=== PATIENT | male | born 1940 | race Caucasian/White ===

== ENCOUNTER 2017-05-07 10:26 | Outpatient (CLI) | payer MEDICARE, BC ==
[2017-05-07 11:52] LABS: Hematocrit 44.8 % (42.0-52.0); Mean Platelet Volume 7.1 fL (7.4-10.4); Red Blood Cell (RBC) Count 4.66 mill/uL (4.70-6.10); White Blood Cell (WBC) Count 5.5 thou/uL (4.8-10.8)
[2017-05-07 11:59] LABS: Prothrombin Time 13.9 SEC (12.0-14.7)
[2017-05-07 12:00] LABS: PTT 30.4 SEC (22.9-36.1)
[2017-05-07 12:13] LABS: Anion Gap 11 mmol/L (10-20); BUN (Urea Nitrogen) 16 mg/dL (8.4-25.7); Calc. Creatinine Clearance 0 mL/min (70-130); Calcium 9.3 mg/dL (7.8-10.44); Carbon Dioxide 27 mmol/L (23-31); Chloride 103 mmol/L (98-107); Estimated GFR-MDRD 90
== END 2017-05-07 10:27 | disposition home or self-care (01) ==
LOC: LABBT 10:26
PROVIDERS: ATTEND Internal Medicine Cardiovascular Disease
DX: Z01.818 Encounter for other preprocedural examination (principal); I48.92 Unspecified atrial flutter

== ENCOUNTER 2018-05-28 11:48 | Observation (INO) | payer MEDICARE, BC ==
[2018-05-28 12:37] LABS: #Basophils 0.1 thou/uL (0.0-0.2); #Eosinphils 0.1 thou/uL (0.0-0.7); #Lymphocytes 1.3 thou/uL (1.20-3.40); #Monocytes 0.7 thou/uL (0.11-0.59); #Neutrophils 4.4 thou/uL (1.40-6.50); %Eosinophils 1.1 % (0.0-10.0); %Lymphocytes 20.1 % (21.0-51.0); %Neutrophils 66.7 % (42.0-75.0); Hemoglobin 13.9 g/dL (14.0-18.0); Mean Corpuscular HGB CONC 34.4 g/dL (32.0-36.0); Mean Corpuscular Hemoglobin 30.6 pg (27.0-31.0); Platelet Count 187 thou/uL (130-400); RBC Distribution Width 11.3 % (11.5-14.5); Red Blood Cell (RBC) Count 4.56 mill/uL (4.70-6.10); White Blood Cell (WBC) Count 6.5 thou/uL (4.8-10.8)
[2018-05-28 12:52] LABS: ALT (SGPT) 32 U/L (8-55); AST (SGOT) 26 U/L (5-34); Albumin 3.8 g/dL (3.4-4.8); Alkaline Phosphatase 85 U/L (40-150); Anion Gap 12 mmol/L (10-20); BUN (Urea Nitrogen) 20 mg/dL (8.4-25.7); Bilirubin, Total 0.6 mg/dL (0.2-1.2); Calc. Creatinine Clearance 0 mL/min (70-130); Calcium 9.3 mg/dL (7.8-10.44); Carbon Dioxide 23 mmol/L (23-31); Chloride 110 mmol/L (98-107); Estimated GFR-MDRD 65; Globulin 2.4 g/dL (2.4-3.5); Glucose 96 mg/dL (83-110); Potassium 4.6 mmol/L (3.5-5.1); Protein, Total 6.2 g/dL (5.8-8.1); Sodium 140 mmol/L (136-145)
[2018-05-28 12:53] LABS: CKMB 1.2 ng/mL (0-6.6); Troponin I Less than 0.010 ng/mL (< 0.028)
[2018-05-28 14:24] LABS: Bilirubin Negative (Negative); Blood, Urine Negative (Negative); Clarity Clear (Clear); Glucose, Urine (Dipstick) Negative (Negative); Leukocyte Negative (Negative); Nitrite Negative (Negative); Protein, Urine (Dipstick) Negative (Neg-Trace); Urobilinogen 0.2 mg/dL (0.2-1.0)
[2018-05-28 15:17] VITALS: BMI 20.3
[2018-05-28] MEDS ORDERED: Nitroglycerin 0.4 MG TAB (25 Tab Bottle) SL PRN (15:24)
[2018-05-28] MEDS ORDERED: HYDROcodone/Acetaminophen 5/325 mg Tablet PO PRN (15:24)
[2018-05-28] MEDS ORDERED: hydrALAZINE 20 MG/ML VIAL SLOW IVP PRN (15:24)
[2018-05-28] MEDS ORDERED: Acetaminophen 325 MG TAB PO PRN (15:24)
[2018-05-28] MEDS ORDERED: cloNIDine 0.1 MG TAB PO PRN (15:24)
[2018-05-28] MEDS ORDERED: Bisacodyl 5 MG TAB PO PRN (15:24)
[2018-05-28] MEDS ORDERED: Ondansetron PF 4 MG/2 ML Vial IVP PRN (15:24)
[2018-05-28] MEDS ORDERED: Diabetic Tussin 200 MG/10 ML UDCUP PO PRN (15:24)
[2018-05-28] MEDS ORDERED: Senokot S 8.6-50 MG TAB PO PRN ×2 (15:24)
[2018-05-28] MEDS ORDERED: Calcium Carbonate 500 MG ChewTAB PO PRN (15:24)
[2018-05-28] MEDS ORDERED: Benzonatate 100 MG CAP PO PRN (15:24)
--- NOTE | 2018-05-28 15:56 | RAD ---
CHEST ONE VIEW: 05/28/18 HISTORY: Dyspnea. COMPARISON: Radiograph 07/20/16. FINDINGS: The lungs are clear. No pneumothorax or effusion. The cardiac silhouette and mediastinal contours ar e within normal limits. IMPRESSION: No acute intrathoracic abnormality. POS: [facility]
[2018-05-28 16:08] LABS: Troponin I Less than 0.010 ng/mL (< 0.028)
--- NOTE | 2018-05-28 16:45 | HP ---
DATE OF ADMISSION: 05/28/2018 PRIMARY CARE PHYSICIAN: Hardy Sierra D.O. CHIEF COMPLAINT: Weakness, hypotension, dizziness and palpitations. HISTORY OF PRESENT ILLNESS: Mr. Zepeda is a 77-year-old male with past medical history of atrial fi brillation, status post ablation and eventually pacemaker placement who presented to the [facility] emergency room with the above-mentioned complaints. History is mainly obtained by the patient hi mself and electronic medical record have been reviewed. Case has been discussed with the ER garrett wolff. Mr. Zepeda reports that he has been in his usual health up until 2 weeks ago. For the last 2 weeks, he has been having extreme weakness where he is not even able to get up from the chair. It comes an d goes. He has some dizziness on and off with this, but mainly the weakness has brought him down. H curry has no sick contacts. He has no fever, chills, rhinorrhea or sore throat. He denies any dehydrati on. His appetite is good and oral intake is good. He denies any diarrhea or vomiting. No blood in the stools or urine. He also reports that his blood pressure has been running low for the last week or so. Sometimes, it is 90s systolic and this morning it was 80s/50s when he checked at home. He al so noticed that he is having some faster heart rate as fast as 113 earlier this morning. He is havin g some palpitations on and off as well. Upon presentation to the emergency room at the [facility]: His blood pressure was 94/67. He re ceived IV fluids in the emergency room and underwent a general examination including a 12-lead EKG, w hich showed paced rhythm at 71 beats per minute and a chest x-ray, which was unremarkable. He receiv ed 1 liter of fluids total and orthostatics were checked and there was no significant difference with the position change. His lab examination was rather unimpressive. Cardiac enzymes negative. He is now being admitted to the hospital for further evaluation. PAST MEDICAL HISTORY: 1. History of atrial fibrillation, status post ablation. 2. History of benign prostatic hypertrophy status post history of bladder cancer, status post TURP. PAST SURGICAL HISTORY: 1. TURP. 2. Pacemaker placement. 3. Hernia repair. 4. Cardiac ablation. SOCIAL HISTORY: He is and lives with his . No history of drug, tobacco or alcohol abuse . FAMILY HISTORY: Significant for dad who of heart failure and brother who from unknown caus es. CURRENT MEDICATIONS: Eliquis 5 mg p.o. b.i.d. and latanoprost eyedrops. CODE STATUS: Full code, discussed with the patient. REVIEW OF SYSTEMS: A 12-point review of systems is done. It is negative except for those mentioned in the history and physical. LABORATORY DATA: CBC shows hemoglobin 13.9, platelet count of 187,000, WBC 6.5. Serum chemistries u nremarkable. Troponin less than 0.010 x2. Urinalysis unremarkable. Chest x-ray by my review shows no pleural effusion, edema or infiltrate. A 12-lead EKG by my review shows no acute ST or T-wave eduardo nges. Paced rhythm is seen at 71 beats per minute. PHYSICAL EXAMINATION: VITAL SIGNS: Most recent vital signs, temperature 97.8, pulse of 79, respirations 18, saturating 94% on room air, blood pressure 110/65. GENERAL: No acute distress. He does appear somewhat pale, but otherwise awake, alert, oriented x3. HEENT: Mucous membrane is moist and pink. No oropharyngeal exudate or erythema. Head is normocepha lic, atraumatic. Pupils equal and reactive to light and accommodation. Extraocular movement intact. NECK: Supple without any lymphadenopathy, JVD or bruit. CHEST: Clear to auscultation without any wheezing, rales or rhonchi. CARDIOVASCULAR: Rate and rhythm is regular without any murmur, rubs or gallops. ABDOMEN: Soft, nontender, nondistended with positive bowel sounds. EXTREMITIES: Free of any cyanosis, clubbing or edema. NEUROLOGIC: Nonfocal. SKIN: Free of any rashes or bruises. Feels warm and dry to touch. PSYCHIATRIC: Normal affect. IMPRESSION AND PLAN: 1. Hypotension. The patient's pacemaker was interrogated and he has been having on and off episodes of atrial fibrillation with heart rate as fast as 180s. At this time, we will continue his Eliquis and get an echocardiogram and request consultation with Cardiology and possibly Electrophysiology for further recommendations. He will be admitted to telemetry unit for cardiac monitoring as well. No other reason is apparent for his low blood pressure as such infection or dehydration. He does not ta ke any blood pressure lowering medication either. 2. History of atrial fibrillation. Continue Eliquis for now. He is having recurrent episodic atria l fibrillation and is symptomatic because of that. 3. History of bladder cancer, status post TURP. 4. Code status: Full code, discussed with the patient. 5. Deep venous thrombosis and gastrointestinal prophylaxis with sequential compression devices and c ontinue Eliquis. DISPOSITION: Mr. Zepeda is currently being admitted to the hospital for hypotension and paroxysmal atrial fibrillation likely as a cause. Further management will depend upon his clinical course and r ecommendations from Cardiology.
[2018-05-28 19:49] LABS: Troponin I 0.011 ng/mL (< 0.028)
--- NOTE | 2018-05-28 20:54 | CON ---
DATE OF CONSULTATION: 05/28/2018 INDICATION FOR CONSULTATION: A 77-year-old patient with atrial fibrillation and flutter with rapid v entricular response with a history of weakness, shortness of breath, and hypotension. HISTORY OF PRESENT ILLNESS: This is a very pleasant 77-year-old gentleman I have been seeing for the last couple of years, has had a pacemaker insertion due to sick sinus syndrome with tachybrady. He also has a history of atrial flutter ablation, has a history of intermittent atrial fibrillation, had been on flecainide in the past and has been followed by the financial administrator. His flecainide and metoprolol were recently stopped by the financial administrator. At this time, the patient complains of increased weakness and shortness of breath for the last couple of weeks. Interrogation of the pacem jenn shows that he has been having multiple episodes of atrial fibrillation with rapid ventricular re sponse and has occasionally appears to be some time also may be atrial flutter, but appears to be juan nly atrial fibrillation. He has been having some episodes where he has been pace terminated by the stephanie marcano when he starts with the tachycardia, but only about 1/3 of the time and the remaining two-third s of the time, he has had intermittent atrial fibrillation with rapid ventricular response. At this time, he has atrial pacing with ventricular sensing, but it also appears to have some episodes of sup raventricular tachycardia on evaluation of the pacemaker. At this time, he is comfortable, but has b een complaining of increasing fatigue and I suspect this is due to the multiple episodes of atrial fi brillation with rapid ventricular response. He denies any chest pain or other significant problems. He has been trying to lose some weight after he originally had his arrhythmia problems in 07/2016. PAST MEDICAL HISTORY: Significant for pacemaker insertion in 07/2015 for tachybrady syndrome. He hurst s had an atrial flutter ablation in 05/2017. He has a history of benign prostatic hypertrophy. He h as had a history of bladder cancer, which has been resected. SOCIAL HISTORY: He is . He has no alcohol or tobacco abuse. FAMILY HISTORY: Positive for coronary artery disease. His father had a myocardial infarction and hurst d bypass surgery. MEDICATIONS PRIOR TO ADMISSION: Included Eliquis 5 mg b.i.d. and aspirin, it is reported as being 32 5, but I believe he was only taking 81 mg of aspirin. He was taking ophthalmic drops. He had previo usly been on flecainide 50 mg b.i.d. as well as metoprolol 25 mg once a day. ALLERGIES: None. REVIEW OF SYSTEMS: A 12-point review of systems is unremarkable, except what was noted in the histor y of present illness. Mainly, he complains of fatigue and weakness. PHYSICAL EXAMINATION: GENERAL: Reveals a well-developed, well-nourished gentleman, somewhat on the thin side. VITAL SIGNS: Blood pressure 110/65, heart rate is 80 at this time and is regular, temperature afebri le, respiratory rate 18. HEENT: Shows the head to be normocephalic and atraumatic. I did not hear any bruits. He has no JVD noted. CHEST: Clear to auscultation without rales, rhonchi, or wheezing. CARDIOVASCULAR: Exam at this time reveals a regular rate and rhythm. He has a well-healed surgical incision over the left infraclavicular area after pacemaker insertion. The site is well healed. The re were no other significant abnormalities. Femoral pulses are present. ABDOMEN: Soft, flat, and nontender. Positive bowel sounds are present. There is no organomegaly or masses noted. EXTREMITIES: Showed no clubbing, cyanosis, or edema. Pedal pulses are also present. NEUROLOGIC: The patient appears to be fully intact for his age. He has normal strength and normal t one. SKIN: Warm and dry. IMAGING: EKG at this time shows atrial pacing and ventricular sensing. Interrogation of the pacemak er indicates multiple episodes of atrial fibrillation with rapid ventricular response and today, he h as been having significant burden of atrial fibrillation with a rapid ventricular response. IMPRESSION: 1. Atrial fibrillation with rapid ventricular response. We will need to have further evaluation by financial administrator. I will start him back on the flecainide 50 mg b.i.d. and also low dose of metop rolol to see whether or not we can suppress some of the atrial fibrillation. He may need to undergo an ablation of the atrial fibrillation. I will leave this up to discretion of the electrophysiologis ts when they visit with the patient on Wednesday. 2. History of bladder cell cancer. This appears to be stable at this time and has not had any recur rence. Otherwise, the patient is stable from a cardiac standpoint. Hopefully, his symptoms will imp rove once we were able to control the atrial fibrillation.
[2018-05-28] MEDS ORDERED: Latanoprost 0.005% Ophth Soln 2.5 ml Bottle EA EYE SCH (21:00)
[2018-05-28] MEDS: Apixaban 5 MG TAB PO SCH (21:07)
[2018-05-28] MEDS: Metoprolol Tartrate 25 MG TAB PO SCH (21:08)
[2018-05-28] MEDS: Flecainide 50 MG TAB PO SCH (21:08)
[2018-05-29 08:03] LABS: Anion Gap 10 mmol/L (10-20); BUN (Urea Nitrogen) 16 mg/dL (8.4-25.7); Calc. Creatinine Clearance 69 mL/min (70-130); Calcium 8.7 mg/dL (7.8-10.44); Carbon Dioxide 25 mmol/L (23-31); Chloride 107 mmol/L (98-107); Estimated GFR-MDRD 88; Glucose 85 mg/dL (83-110); Potassium 4.2 mmol/L (3.5-5.1); Sodium 138 mmol/L (136-145)
[2018-05-29 08:17] LABS: #Eosinphils 0.1 thou/uL (0.0-0.7); #Lymphocytes 1.5 thou/uL (1.20-3.40); #Monocytes 0.5 thou/uL (0.11-0.59); #Neutrophils 2.9 thou/uL (1.40-6.50); %Basophils 0.6 % (0.0-1.0); %Lymphocytes 30.2 % (21.0-51.0); %Monocytes 9.5 % (0.0-10.0); %Neutrophils 57.7 % (42.0-75.0); Hemoglobin 13.6 g/dL (14.0-18.0); Mean Corpuscular HGB CONC 33.7 g/dL (32.0-36.0); Mean Corpuscular Hemoglobin 31.9 pg (27.0-31.0); Mean Corpuscular Volume 94.7 fL (78.0-98.0); Mean Platelet Volume 7.3 fL (7.4-10.4); Platelet Count 230 thou/uL (130-400); Red Blood Cell (RBC) Count 4.27 mill/uL (4.70-6.10)
[2018-05-29] MEDS: Metoprolol Tartrate 25 MG TAB PO SCH (08:20)
[2018-05-29] MEDS: Flecainide 50 MG TAB PO SCH (08:20)
[2018-05-29] MEDS: Apixaban 5 MG TAB PO SCH (08:20)
[2018-05-29] MEDS ORDERED: Enoxaparin Sodium 40 MG/0.4 ML SYRINGE SC SCH (09:00)
--- NOTE | 2018-05-29 09:21 | PDOC.CTH ---
<Claudette Miller - Last Filed: 05/29/18 09:23> Cardiology Progress Note - Subjective The pt seen and examined. No overnight events. No cardiac complaints. He denied weakness or SOB. Eating well. - Objective Vital Signs Temp Pulse Resp BP BP Pulse Ox 05/29/18 07:46 98.4 F 73 16 121/76 95 05/29/18 03:45 98.4 F 72 18 115/65 94 L 05/29/18 00:15 97.5 F L 66 18 102/64 94 L Weight 149 lb 14.629 oz 05/28/18 05/29/18 05/30/18 06:59 06:59 06:59 Intake Total 720 Balance 720 - Physical Examination General/Neuro: alert & oriented x3 Neck: no JVD present Lungs: CTA Heart: other: (irreguler) Abdomen: soft Extremities: other: (No edema) - Telemetry Telemetry Rhythm: A paced with underline rhythm Afib - Labs Result Diagrams: 05/29/18 06:34 05/29/18 06:34 Troponin/CKMB CK-MB (CK-2) 1.2 ng/mL (0-6.6) 05/28/18 12:25 Troponin I 0.011 ng/mL (< 0.028) 05/28/18 19:12 - Assessment/Plan 1. Afib with RVR - Well controlled HR with Flecainide 50mg, Metoprolol, and Eliquis. EP consult was ordered. 2. hx of Aflutter with Aflutter RFA in 05/2017 3. Hx of PM placement 2/2 sss - stable MAR reviewed Review of Systems - Review of Systems Constitutional: reports: no symptoms reported EENTM: reports: no symptoms reported Respiratory: reports: no symptoms reported Cardiac (ROS): reports: no symptoms reported ABD/GI: reports: no symptoms reported : reports: no symptoms reported Musculoskeletal: reports: no symptoms reported <Shiva Uribe - Last Filed: 05/29/18 22:21> Cardiology Progress Note - Objective Vital Signs Temp Pulse Resp BP Pulse Ox 05/29/18 15:50 97.7 F 66 16 127/75 94 L 05/29/18 11:28 97.5 F L 64 16 122/68 95 Weight 149 lb 14.629 oz 05/28/18 05/29/1805/30/18 06:59 06:59 06:59 Intake Total 720 Balance 720 - Labs Result Diagrams: 05/29/18 12:40 05/29/18 12:40 Troponin/CKMB CK-MB (CK-2) 1.2 ng/mL (0-6.6) 05/28/18 12:25 Troponin I 0.011 ng/mL (< 0.028) 05/28/18 19:12 - Assessment/Plan Pt.seen and eval.by me.I agreewith the A/Pby the RESERVOIR ENGINEERING CONSULTANT.He has convertedbacktoNSR.He wants togohome.He isstable and willf/u with EP.RRR.Chest clear.
--- NOTE | 2018-05-29 12:32 | PDOC.PN ---
- Subjective Encounter Start Date: 05/29/18 Encounter Start Time: 12:30 Subjective: feels much better.no more dizziness,low BP or palpitations - Objective Resuscitation Status: Resuscitation Status FULL:Full Resuscitation MAR Reviewed: Yes Vital Signs & Weight: Vital Signs (12 hours) Temp Pulse Resp BP BP Pulse Ox 05/29/18 11:28 97.5 F L 64 16 122/68 95 05/29/18 07:46 98.4 F 73 16 121/76 95 05/29/18 03:45 98.4 F 72 18 115/65 94 L Weight Weight 149 lb 14.629 oz I&O: 05/28/18 05/29/18 05/30/18 06:59 06:59 06:59 Intake Total 720 Balance 720 Result Diagrams: 05/29/18 06:34 05/29/18 06:34 Additional Labs: Laboratory Tests 07/18/16 07/18/16 07/18/16 08:14 08:14 18:55 D-Dimer 1.96 H Troponin I 0.015 0.059 H 05/28/18 05/28/18 05/28/18 12:25 15:29 19:12 D-Dimer Troponin I Less than 0.010 Less than 0.010 0.011 Phys Exam - Physical Examination Constitutional: NAD HEENT: PERRLA, moist MMs, sclera anicteric, TM's clear, oral pharynx no lesions , 2+ tonsils Neck: no nodes, no JVD, supple, full ROM Respiratory: no wheezing, no rales, no rhonchi, clear to auscultation bilateral Cardiovascular: RRR, no significant murmur, no rub, gallop Gastrointestinal: soft, non-tender, no distention, positive bowel sounds Musculoskeletal: no edema, pulses present Neurological: non-focal, normal sensation, moves all 4 limbs Psychiatric: normal affect, A&O x 3 Skin: no rash Dx/Plan (1) Atrial fib/flutter, transient Code(s): OLD7141 - Status: Acute Comment: PPM in place for h/o Tachy-pancho syndrome.Off of Flecainide since 04/20 (2) Hypotension Status: Acute (3) Pacemaker Code(s): Z95.0 - PRESENCE OF CARDIAC PACEMAKER Status: Chronic (4) Bladder cancer Status: Chronic Comment: s/p resection - Plan out of bed/ambulate, DVT proph w/SCDs cont flecianide and metoprolol as started by cardiology. -: consult EP. -: Hd stable. -: consult Rudolph * . Review of Systems - Review of Systems Constitutional: negative: fever, chills, sweats, weakness, malaise, other ENT: negative: Ear Pain, Ear Discharge, Nose Pain, Nose Discharge, Nose Congestion, Mouth Pain, Mouth Swelling, Throat Pain, Throat Swelling, Other Respiratory: negative: Cough, Dry, Shortness of Breath, Hemoptysis, SOB with Excertion, Pleuritic Pain, Sputum, Wheezing Cardiovascular: negative: chest pain, palpitations, orthopnea, paroxysmal nocturnal dyspnea, edema, light headedness, other Gastrointestinal: negative: Nausea, Vomiting, Abdominal Pain, Diarrhea, Constipation, Melena, Hematochezia, Other Genitourinary: negative: Dysuria, Frequency, Incontinence, Hematuria, Retention , Other Musculoskeletal: negative: Neck Pain, Shoulder Pain, Arm Pain, Back Pain, Hand Pain, Leg Pain, Foot Pain, Other Neurological: negative: Weakness, Numbness, Incoordination, Change in Speech, Confusion, Seizures, Other - Medications/Allergies Allergies/Adverse Reactions: Allergies Allergy/AdvReac Type Severity Reaction Status Date / Time No Known Allergies Allergy Verified 05/28/18 15:18 Medications: Current Medications Acetaminophen (Tylenol) 650 mg PO Q4H PRN PRN Reason: Headache/Fever/Mild Pain (1-3) Hydrocodone Bitart/Acetaminophen ([place] 5/325) 1 tab PO Q4H PRN PRN Reason: Moderate Pain (4-6) Apixaban (Eliquis) 5 mg PO BID [facility] Last Admin: 05/29/18 08:20 Dose: 5 mg Benzonatate (Tessalon) 100 mg PO Q6H PRN PRN Reason: Cough Bisacodyl (Dulcolax) 10 mg PO DAILYPRN PRN PRN Reason: Constipation Calcium Carbonate (Tums) 1,000 mg PO Q4H PRN PRN Reason: Heartburn or Indigestion Clonidine (Catapres) 0.1 mg PO Q4H PRN PRN Reason: SBP > _160___ Flecainide Acetate (Tambocor) 50 mg PO Q12HR [facility] Last Admin: 05/29/18 08:20 Dose: 50 mg Guaifenesin (Robitussin Sf) 200 mg PO Q4H PRN PRN Reason: Cough Hydralazine HCl (Apresoline) 10 mg SLOW IVP Q4H PRN PRN Reason: SBP > 180 and HR < 70 Latanoprost (Xalatan 0.005% Ophth Soln) 1 drop EA EYE HS [facility] Last Admin: 05/28/18 21:36 Dose: 1 drop Metoprolol Tartrate (Lopressor) 12.5 mg PO BID [facility] Last Admin: 05/29/18 08:20 Dose: 12.5 mg Nitroglycerin (Nitrostat) 0.4 mg SL Q5MIN PRN PRN Reason: Chest Pain Senna/Docusate Sodium (Senokot S) 2 tab PO BID PRN PRN Reason: Constipation Senna/Docusate Sodium (Senokot S) 2 tab PO BID PRN PRN Reason: Constipation
[2018-05-29 12:49] LABS: Hemoglobin 13.2 g/dL (14.0-18.0); Platelet Count 221 thou/uL (130-400)
[2018-05-29 16:11] VITALS: BP 127/75; TEMP 97.7
--- NOTE | 2018-05-30 19:08 | DIS ---
DATE OF ADMISSION: 05/28/2018 DATE OF DISCHARGE: 05/29/2018 CONDITION AT THE TIME OF DISCHARGE: Stable and improved. DISCHARGE DIAGNOSES: 1. Hypotension and weakness secondary to reoccurrence of paroxysmal atrial fibrillation and flutter. 2. History of sick sinus syndrome, status post pacemaker placement in the past. 3. History of atrial flutter, status post ablation in 2017. 4. Bladder cancer, status post resection in the past. DISCHARGE MEDICATIONS: New medications; flecainide 50 mg p.o. every 12 hours and Lopressor 12.5 mg p .o. b.i.d. Resume following home medications, Eliquis 5 mg p.o. b.i.d. INHOUSE CONSULTATIONS: Cardiology, Dr. Yobani Uribe. PROCEDURES DONE IN THE HOSPITAL: Transthoracic echocardiogram, which shows EF of 50% -55% and pacer wire seen in right ventricle and right atrial cavity. PRIMARY CARE PHYSICIAN: Dr. Hardy Sierra. PRIMARY FIBER ANALYST: Dr. Uribe. HISTORY OF PRESENTING ILLNESS: Mr. Zepeda is a very pleasant 77-year-old male with history of atria l flutter and atrial fibrillation, status post ablation in 2016 and history of sick sinus syndrome, s tatus post pacemaker placement in 2017, who presented to the emergency room with 2 week complaint of generalized weakness, low blood pressure, and malaise. He was found to have a blood pressure in the 80s/60s at home. No infectious etiology was evident. He was admitted to telemetry floor given his h istory of atrial flutter and atrial fibrillation. Initial EKG showed normal paced rhythm. Please se e admission history and physical for further details. HOSPITAL COURSE: His pacemaker was interrogated and it was found that he has been having episodes of atrial flutter and atrial fibrillation for the last 2 weeks and the heart rate has been as high as 1 80. Cardiology was consulted. Echo was done. Dr. Uribe saw the patient and he was restarted on flec ainide and metoprolol, which he was taking prior to ablation. After the ablation, he has been taken off of it in 04/2017. This helped control his rhythm and he remained in sinus rhythm and had improve ment in his symptoms and blood pressure. He was desirous to go home, but he is instructed to follow up with Electrophysiology, Dr. Stuart in the outpatient setting. He has been seen by Dr. Stuart in the p ast who has done the ablation. At this time, he does not want to stay in the hospital anymore for th e evaluation that cannot be done today. He was cleared by Cardiology to go home as he is hemodynamic ally stable and his heart rate and rhythm are controlled on oral medications. New medication prescri ptions were provided. He was seen and examined prior to discharge. Please see hospitalist progress note from the date of d ischarge for further detail including [id number] interaction.
== END 2018-05-29 18:31 | disposition home or self-care (01) ==
LOC: SCSER 11:48 → 2SW 13:43
PROVIDERS: ADMIT Internal Medicine; ATTEND Internal Medicine
DX: I48.0 Paroxysmal atrial fibrillation (principal); I95.9 Hypotension, unspecified; R53.1 Weakness; R42 Dizziness and giddiness; I49.5 Sick sinus syndrome; R00.2 Palpitations; I48.92 Unspecified atrial flutter; Z95.0 Presence of cardiac pacemaker; Z79.01 Long term (current) use of anticoagulants
CPT/HCPCS: 71045; 80048; 80053; 81003; 82553; 82565; 84484 ×2; 85014; 85018; 85025 ×2; 85049; 93005; 93306; 96360; 99285; G0378 ×2; 36415

== ENCOUNTER 2019-04-03 10:14 | Outpatient (CLI) | payer MEDICARE, BC ==
--- NOTE | 2019-04-03 13:17 | RAD ---
EXAM: XR Abdomen 1 View/KUB PROVIDED CLINICAL HISTORY: Malignant neoplasm of bladder wall urinary bladder. This examination was initially scheduled as IVP. However, the patient was administered barium prior to this exam. COMPARISON: None FINDINGS: There is contrast seen in the hepatic flexure related to recent barium administration. This overlies the region of the right renal shadow. There is a small amount of retained fecal material seen throughout the colon. Bowel gas pattern is otherwise nonspecific. No definitive suspicious calcificat ions are seen. Mild vascular calcifications are seen overlying the left upper quadrant. Mild degenerative changes noted in the lumbar spine. There is partial visualization of AICD leads. IMPRESSION: 1. Residual barium in the hepatic flexure of the colon which overlies the right renal shadow and woul d obscure evaluation of the right renal shadow on IVP. Patient will return on a later date to obtain IVP after the appropriate bowel prep.
== END 2019-04-03 10:15 | disposition home or self-care (01) ==
LOC: RAD 10:14
PROVIDERS: ATTEND Urology
DX: C67.2 Malignant neoplasm of lateral wall of bladder (principal)
CPT/HCPCS: 74018; 81001; 87086

== ENCOUNTER 2022-02-05 10:30 | Outpatient (CLI) | payer MEDICARE, BC ==
[2022-02-05 13:00] LABS: #Basophils 0.1 10x3/uL (0.0-0.2); #Eosinphils 0.1 10x3/uL (0.0-0.5); #Monocytes 0.6 10x3/uL (0.0-1.1); #Neutrophils 4.1 10x3/uL (1.5-8.4); %Lymphocytes 28.5 % (18.0-47.0); %Neutrophils 59.8 % (40.0-75.0); Hemoglobin 13.2 g/dL (13.5-17.5); Mean Corpuscular HGB CONC 33.7 g/dL (32.0-36.0); Mean Corpuscular Hemoglobin 31.1 pg (27.0-33.0); Mean Corpuscular Volume 92.2 fl (81.2-95.1); Mean Platelet Volume 9.4 fl (7.4-10.4); Platelet Count 267 10x3/uL (150-450); RBC Distribution Width 13.2 % (11.5-14.5); Red Blood Cell (RBC) Count 4.25 10x6/uL (4.32-5.72); White Blood Cell (WBC) Count 6.8 10x3/uL (3.5-10.5)
[2022-02-05 13:11] LABS: Anion Gap 11 mmol/L (10-20); BUN (Urea Nitrogen) 19 mg/dL (8.4-25.7); Calc. Creatinine Clearance 0 mL/min (70-130); Calcium 9.1 mg/dL (7.8-10.44); Carbon Dioxide 26 mmol/L (23-31); Chloride 105 mmol/L (98-107); Estimated GFR 85; Potassium 4.8 mmol/L (3.5-5.1); Sodium 137 mmol/L (136-145)
[2022-02-05 13:23] LABS: Glucose 59 mg/dL (83-110)
== END 2022-02-05 10:31 | disposition home or self-care (01) ==
LOC: LABBT 10:30
PROVIDERS: ATTEND Orthopaedic Surgery Hand Surgery
DX: Z01.818 Encounter for other preprocedural examination (principal); M72.0 Palmar fascial fibromatosis [Dupuytren]; Z20.822 Contact with and (suspected) exposure to COVID-19
CPT/HCPCS: 80048; 85025; 87811; 93005; 93010

== ENCOUNTER 2022-02-09 11:48 | Day surgery (SDC) | payer MEDICARE, BC ==
[2022-02-05 12:17] VITALS: BMI 21.7
[2022-02-09] MEDS ORDERED: CEFAZOLIN 2 GM in Sodium Chloride 0.9% 100 ML IVPB SCH (12:15)
[2022-02-09] MEDS ORDERED: Sodium Chloride 0.9% 100 ML ONE (12:34)
[2022-02-09] MEDS ORDERED: Lidocaine 1% MPF 2 ML VIAL ONE (12:34)
[2022-02-09] MEDS ORDERED: CEFAZOLIN 2 GM VIAL ONE (12:34)
[2022-02-09] MEDS ORDERED: fentaNYL Citrate/PF 100 MCG/2 ML SYRINGE ONE (13:24)
[2022-02-09] MEDS ORDERED: Bupivacaine PF 0.5% 30 ML VIAL ONE (13:25)
[2022-02-09] MEDS ORDERED: Collagenase Clostridium Hist. 0.9 MG VIAL IJ SCH (13:45)
[2022-02-09] MEDS ORDERED: PROPOFOL 200 MG/20 ML VIAL ONE (13:59)
[2022-02-09] MEDS ORDERED: Lidocaine 1% PF 5 ML VIAL ONE (13:59)
== END 2022-02-09 15:05 | disposition home or self-care (01) ==
LOC: SDC 11:48
PROVIDERS: ATTEND Orthopaedic Surgery Hand Surgery
PROC: 3E013TZ Introduction of Destructive Agent into Subcutaneous Tissue, Percutaneous Approach (ICD-10-PCS; principal; 2022-02-09)
DX: M72.0 Palmar fascial fibromatosis [Dupuytren] (principal); Z79.01 Long term (current) use of anticoagulants; Z79.899 Other long term (current) drug therapy; Z95.0 Presence of cardiac pacemaker
CPT/HCPCS: 20527 ×2; J0775; J0690; J2704; J3490; S0020

== ENCOUNTER 2022-05-01 11:40 | Outpatient (CLI) | payer MEDICARE, BC ==
[2022-05-01 12:43] LABS: #Basophils 0.1 10x3/uL (0.0-0.2); #Eosinphils 0.1 10x3/uL (0.0-0.5); #Monocytes 0.5 10x3/uL (0.0-1.1); #Neutrophils 3.9 10x3/uL (1.5-8.4); %Basophils 0.8 % (0.0-2.0); %Eosinophils 1.7 % (0.0-6.0); %Lymphocytes 29.7 % (18.0-47.0); %Monocytes 8.1 % (0.0-10.0); %Neutrophils 59.4 % (40.0-75.0); Hemoglobin 13.5 g/dL (13.5-17.5); Mean Corpuscular HGB CONC 34.2 g/dL (32.0-36.0); Mean Corpuscular Hemoglobin 31.5 pg (27.0-33.0); Mean Corpuscular Volume 92.3 fl (81.2-95.1); Mean Platelet Volume 9.4 fl (7.4-10.4); Platelet Count 205 10x3/uL (150-450); Red Blood Cell (RBC) Count 4.28 10x6/uL (4.32-5.72); White Blood Cell (WBC) Count 6.5 10x3/uL (3.5-10.5)
[2022-05-01 13:18] LABS: PTT 29.6 sec (22.0-33.0); Prothrombin Time 10.8 sec (9.5-12.1)
[2022-05-01 13:22] LABS: ALT (SGPT) 13 U/L (8-55); AST (SGOT) 18 U/L (5-34); Albumin 4.1 g/dL (3.4-4.8); Alkaline Phosphatase 73 U/L (40-110); Anion Gap 12 mmol/L (10-20); BUN (Urea Nitrogen) 18 mg/dL (8.4-25.7); Bilirubin, Direct 0.4 mg/dL (0.1-0.3); Bilirubin, Total 1.2 mg/dL (0.2-1.2); Calc. Creatinine Clearance 0 mL/min (70-130); Calcium 9.1 mg/dL (7.8-10.44); Carbon Dioxide 25 mmol/L (23-31); Chloride 110 mmol/L (98-107); Estimated GFR 75; Glucose 85 mg/dL (83-110); Potassium 4.8 mmol/L (3.5-5.1); Protein, Total 6.1 g/dL (5.8-8.1); Sodium 142 mmol/L (136-145)
== END 2022-05-01 11:41 | disposition home or self-care (01) ==
LOC: LABBT 11:40
PROVIDERS: ATTEND Internal Medicine Cardiovascular Disease
DX: Z01.818 Encounter for other preprocedural examination (principal); Z51.81 Encounter for therapeutic drug level monitoring; I48.0 Paroxysmal atrial fibrillation; I51.9 Heart disease, unspecified; K76.9 Liver disease, unspecified; Z79.01 Long term (current) use of anticoagulants
CPT/HCPCS: 71046; 80048; 80076; 85025; 85610; 85730; 93005; 93010